=== PATIENT | male | born 1955 | race Caucasian/White ===

== ENCOUNTER 2020-08-18 15:08 | Emergency (ER) | payer BC ==
[2020-08-18] MEDS ORDERED: DECADRON6 MG PO (19:19)
[2020-08-18] MEDS ORDERED: DOXYCYCLINE HY100 MG PO (19:19)
== END 2020-08-18 19:36 | disposition home or self-care (01) ==
LOC: ER1 15:08
DX: U07.1 COVID-19 (principal)
CPT/HCPCS: 93005; 96374; 96375; 99283; J1100; J1885; J7030; U0002